=== PATIENT | female | born 1985 | race Caucasian/White ===

== ENCOUNTER 2019-02-20 11:22 | Emergency (ER) | payer SELFPAY ==
[~2019-02-20] VITALS: Ht 165.1 cm; Wt 107.3 kg
[~2019-02-20 11:22] MED LIST: CEPH-443 PO; DICY20TA59 PO; HYDR-3498 PO; IBUP-1542 PO; ONDA4TAB35 PO; PHEN-538 PO
[2019-02-20 11:25] VITALS: Ht 165.1 cm; Wt 107.3 kg
[2019-02-20] MEDS ORDERED: HYDROCODONE/APAP (5/325) TAB PO STA (11:44)
--- NOTE | 2019-02-20 11:50 | ERD ---
ER Documentation Chief Complaint Chief Complaint vaginal bleeding and lower abdominal pain - LMP 11/09/18 HPI 33-year-old G2, P1 female in her 14th week of presents with vaginal bleeding and pelvic pain since yesterday. States that she just found out she was 2 days ago and was diagnosed at the clinic with yesterday. For past two days she has experienced pelvic pane and bleeding. States that she has gone through 2 pads today. States that the pelvic pain is currently 10 out of 10 in intensity and she is requesting medication for pain. Has not taken any treatment so far. Has not had an ultrasound so far. LMP was November 09, 2018. Has a history of prediabetes. Denies any fevers, dysuria, lightheadedness, chest pain, palpitations. ROS All systems reviewed and are negative except as per history of present illness. Medications Home Meds Active Scripts Hydrocodone/Acetaminophen ([place] 5-325 Tablet) 1 Each Tablet, 1 TAB PO Q6H PRN for PAIN, #15 TAB Prov:DASH DAVID 02/20/19 Cephalexin* (Keflex*) 500 Mg Capsule, 500 MG PO BID for 7 Days, #14 CAP Prov:MARISSA FLORES MD 06/23/16 Phenazopyridine Hcl* (Pyridium*) 200 Mg Tab, 200 MG PO TID PRN for URINARY PAIN, #6 TAB Prov:MARISSA FLORES MD 06/23/16 Ibuprofen* (Motrin*) 600 Mg Tab, 600 MG PO Q6H PRN for PAIN AND OR ELEVATED TEMP, #30 TAB Prov:MARISSA FLORES MD 06/23/16 Dicyclomine Hcl* (Bentyl*) 20 Mg Tablet, 20 MG PO QID, #20 TAB Prov:FELIX MANRIQUEZ NP 03/20/16 Ondansetron Hcl* (Zofran* ODT) 4 mg -ODT Tab.disper, 4 MG PO Q8 PRN for NAUSEA AND OR VOMITING, #30 TAB Prov:FELIX MANRIQUEZ NP 03/20/16 Hydrocodone Bit-Acetaminophen* ([place]*) 5-325 Mg Tab, 1 TAB PO Q6 PRN for PAIN, #20 TAB Prov:FELIX MANRIQUEZ MARIAELENA Smith NP 03/20/16 Allergies Allergies: Coded Allergies: No Known Drug Allergies (Verified Allergy, Unknown, 07/21/16) PMhx/Soc History of Surgery: No Anesthesia Reaction: No Hx Neurological Disorder: No Hx Respiratory Disorders: No Hx Cardiac Disorders: No Hx Psychiatric Problems: No Hx Miscellaneous Medical Probl: No Hx Alcohol Use: No Hx Substance Use: No Hx Tobacco Use: No FmHx Family History: No diabetes, No coronary disease, No other Physical Exam Vitals Vital Signs Date Temp Pulse Resp B/P (MAP) Pulse Ox O2 O2 Flow FiO2 Time Delivery Rate 02/20/19 79 20 131/69 100 14:41 (89) 02/20/19 98.7 80 19 137/71 100 11:25 (93) Physical Exam Const: No acute distress Head: Atraumatic Eyes: Normal Conjunctiva ENT: Normal External Ears, Nose and Mouth. Neck: Full range of motion. No meningismus. Resp: Clear to auscultation bilaterally Cardio: Regular rate and rhythm, no murmurs Abd: Tenderness to palpation without guarding in the lower abdomen bilaterally. Negative McBurney's. Skin: No petechiae or rashes Back: No midline or flank tenderness Ext: No cyanosis, or edema Neur: Awake and alert Psych: Normal Mood and Affect Result Diagram: 02/20/19 1155 Results 24 hrs Laboratory Tests Test 02/20/19 11:55 White Blood Count 12.8 10^3/ul Red Blood Count 4.26 10^6/ul Hemoglobin 13.3 g/dl Hematocrit 40.0 % Mean Corpuscular Volume 93.9 fl Mean Corpuscular Hemoglobin 31.2 pg Mean Corpuscular Hemoglobin Concent 33.3 g/dl Red Cell Distribution Width 12.5 % Platelet Count 294 10^3/UL Mean Platelet Volume 10.5 fl Immature Granulocytes % 0.500 % Neutrophils % 59.5 % Lymphocytes % 33.2 % Monocytes % 4.6 % Eosinophils % 2.0 % Basophils % 0.2 % Nucleated Red Blood Cells % 0.0 /100WBC Immature Granulocytes # 0.060 10^3/ul Neutrophils # 7.6 10^3/ul Lymphocytes # 4.3 10^3/ul Monocytes # 0.6 10^3/ul Eosinophils # 0.3 10^3/ul Basophils # 0.0 10^3/ul Nucleated Red Blood Cells # 0.0 10^3/ul Urine Color YELLOW Urine Clarity SLIGHTLY CLOUDY Urine pH 6.0 Urine Specific [place] 1.014 Urine Ketones NEGATIVE mg/dL Urine Nitrite NEGATIVE mg/dL Urine Bilirubin NEGATIVE mg/dL Urine Urobilinogen NEGATIVE mg/dL Urine Leukocyte Esterase NEGATIVE Sruthi/ul Urine Microscopic RBC 18 /HPF Urine Microscopic WBC 6 /HPF Urine Squamous Epithelial Cells FEW /HPF Urine Bacteria FEW /HPF Urine Hemoglobin 3+ mg/dL Urine Glucose NEGATIVE mg/dL Urine Total Protein NEGATIVE mg/dl Beta HCG, Quantitative 1410.8 mIU/ml Current Medications Medications Dose Sig/Jennifer Start Time Status Last (Trade) Ordered Route PRN Stop Time Admin Dose Reason Admin 1 tab ONCE STAT 02/20/19 DC 02/20/19 Acetaminophen PO 11:44 12:18 / 02/20/19 11:55 Hydrocodone Bitart ([place] ()) Procedures/MDM ER Course: CBC, UA, beta quant HCG, type and RH, vaginal US/abdominal US ordered. MDM: There is no intrauterine seen on ultrasound. Differentials include early , missed , or ectopic. Explained this to the patient with business education instructor present and also explained to her that she would need to return in 48 hours for repeat exam in order to rule out ectopic which could be life-threatening. In addition, pelvic exam was performed and there was no hemorrhagic bleeding. OS was closed and there were no products of conception noted at opening of os. Patient is human dynamically stable without exam course. Patient was given 1 [place] in the ER and that successfully resolved her pain. I discharge her with short course of [place] but told to use it sparingly in case there was a viable intrauterine it is not to be on it for too long. Patient understood and agreed to only use it for breakthrough pain. I have low suspicion for septic , pyelonephritis, placenta abrupta, appendicitis, cholecystitis, bowel obstruction, ovarian torsion, symptomatic anemia, PID, surgical abdomen, or other life threatening conditions based on patient history, physical exam, and lab/imaging results. Patient discharged with strict ER precautions. Patient advised to in 48 hours for repeat examination with an business education instructor present . All questions answered at discharge. Departure Diagnosis: Primary Impression: Vaginal bleeding in patient at less than 20 weeks gestation Condition: Stable DASH DAVID February 20, 2019 11:50
[2019-02-20] MEDS ORDERED: HYDR-4011 PO (14:12)
[2019-02-20 14:41] VITALS: BP 131/69; PULSE 79; RESP 20
== END 2019-02-20 14:40 | disposition home or self-care (01) ==
LOC: FTE 11:22
DX: O20.9 Hemorrhage in early pregnancy, unspecified (principal); R10.2 Pelvic and perineal pain; Z3A.14 14 weeks gestation of pregnancy
CPT/HCPCS: 36415; 76801; 76817; 81001; 84702; 85025; 86900; 86901

== ENCOUNTER 2019-02-22 11:12 | Emergency (ER) | payer SELFPAY ==
[~2019-02-22] VITALS: Ht 167.6 cm; Wt 106.6 kg
[~2019-02-22 11:12] MED LIST changes: +HYDR-4011 PO
[2019-02-22 11:38] VITALS: Ht 167.6 cm; Wt 106.6 kg
[2019-02-22] MEDS ORDERED: ACETAMINOPHEN 325 MG TAB PO STA (12:22)
--- NOTE | 2019-02-22 13:14 | ERD ---
ER Documentation Chief Complaint Chief Complaint vaginal bleeding unk time g2 HPI 33-year-old female who is , last menstrual cycle of 11/09/2017 presenting with complaints of vaginal bleeding ongoing for the past 3 days. Patient states she only notices blood when she uses the restroom. She reports associated pelvic pain which is constant, rated 10/10 in severity. She denies any vaginal discharge, fevers, chills, nausea, vomiting, diarrhea, abdominal pain, or other symptoms at this time. Patient was seen here 2 days ago and had an ultrasound which showed no intrauterine , however beta hCG was 1410.8. ROS All systems reviewed and are negative except as per history of present illness. Medications Home Meds Active Scripts Acetaminophen* (Tylenol*) 325 Mg Tablet, 2 TAB PO Q6 PRN for PAIN AND OR ELEVATED TEMP, #20 TAB Prov:DASH MORLEY PA-C 02/22/19 Hydrocodone/Acetaminophen ([place] 5-325 Tablet) 1 Each Tablet, 1 TAB PO Q6H PRN for PAIN, #15 TAB Prov:DASH DAVID 02/20/19 Cephalexin* (Keflex*) 500 Mg Capsule, 500 MG PO BID for 7 Days, #14 CAP Prov:MARISSA FLORES MD 06/23/16 Phenazopyridine Hcl* (Pyridium*) 200 Mg Tab, 200 MG PO TID PRN for URINARY PAIN, #6 TAB Prov:MARISSA FLORES MD 06/23/16 Ibuprofen* (Motrin*) 600 Mg Tab, 600 MG PO Q6H PRN for PAIN AND OR ELEVATED TEMP, #30 TAB Prov:MARISSA FLORES MD 06/23/16 Dicyclomine Hcl* (Bentyl*) 20 Mg Tablet, 20 MG PO QID, #20 TAB Prov:FELIX MANRIQUEZ NP 03/20/16 Ondansetron Hcl* (Zofran* ODT) 4 mg -ODT Tab.disper, 4 MG PO Q8 PRN for NAUSEA AND OR VOMITING, #30 TAB Prov:FELIX MANRIQUEZ NP 03/20/16 Hydrocodone Bit-Acetaminophen* ([place]*) 5-325 Mg Tab, 1 TAB PO Q6 PRN for PAIN, #20 TAB Prov:FELIX MANRIQUEZ DARSHANA 03/20/16 Allergies Allergies: Coded Allergies: No Known Drug Allergies (Verified Allergy, Unknown, 02/22/19) PMhx/Soc Medical and Surgical Hx: pt denies Surgical Hx History of Surgery: Yes (c/s) Anesthesia Reaction: No Hx Neurological Disorder: No Hx Respiratory Disorders: No Hx Cardiac Disorders: No Hx Psychiatric Problems: No Hx Miscellaneous Medical Probl: Yes (pre DM) Hx Alcohol Use: No Hx Substance Use: No Hx Tobacco Use: No Smoking Status: Never smoker FmHx Family History: No diabetes Physical Exam Vitals Vital Signs Date Temp Pulse Resp B/P (MAP) Pulse Ox O2 O2 Flow FiO2 Time Delivery Rate 02/22/19 99.2 75 19 118/65 100 Room Air 16:25 (82) 02/22/19 99.4 69 18 116/57 98 11:38 (76) Physical Exam Const: No acute distress Head: Atraumatic Eyes: Normal Conjunctiva ENT: Normal External Ears, Nose and Mouth. Neck: Full range of motion. No meningismus. Resp: Clear to auscultation bilaterally Cardio: Regular rate and rhythm, no murmurs Abd: Soft, non tender, non distended. Normal bowel sounds. Subjective tenderness palpation of the pelvic region bilaterally. No rebound tenderness or guarding. No McBurney's point tenderness. Skin: No petechiae or rashes Back: No midline or flank tenderness Ext: No cyanosis, or edema Neur: Awake and alert Psych: Normal Mood and Affect Result Diagram: 02/22/19 1235 Results 24 hrs Laboratory Tests Test 02/22/19 12:35 White Blood Count 12.9 10^3/ul Red Blood Count 4.29 10^6/ul Hemoglobin 13.4 g/dl Hematocrit 40.5 % Mean Corpuscular Volume 94.4 fl Mean Corpuscular Hemoglobin 31.2 pg Mean Corpuscular Hemoglobin Concent 33.1 g/dl Red Cell Distribution Width 12.3 % Platelet Count 320 10^3/UL Mean Platelet Volume 10.9 fl Immature Granulocytes % 0.400 % Neutrophils % 61.6 % Lymphocytes % 30.7 % Monocytes % 4.7 % Eosinophils % 2.2 % Basophils % 0.4 % Nucleated Red Blood Cells % 0.0 /100WBC Immature Granulocytes # 0.050 10^3/ul Neutrophils # 7.9 10^3/ul Lymphocytes # 4.0 10^3/ul Monocytes # 0.6 10^3/ul Eosinophils # 0.3 10^3/ul Basophils # 0.1 10^3/ul Nucleated Red Blood Cells # 0.0 10^3/ul Urine Color STRAW Urine Clarity CLEAR Urine pH 7.0 Urine Specific [place] 1.006 Urine Ketones NEGATIVE mg/dL Urine Nitrite NEGATIVE mg/dL Urine Bilirubin NEGATIVE mg/dL Urine Urobilinogen NEGATIVE mg/dL Urine Leukocyte Esterase NEGATIVE Sruthi/ul Urine Microscopic RBC 0 /HPF Urine Microscopic WBC 0 /HPF Urine Hemoglobin 2+ mg/dL Urine Glucose NEGATIVE mg/dL Urine Total Protein NEGATIVE mg/dl Beta HCG, Quantitative 1444.7 mIU/ml Current Medications Medications Dose Sig/Jennifer Start Time Status Last (Trade) Ordered Route PRN Stop Time Admin Dose Reason Admin 650 mg ONCE STAT 02/22/19 DC 02/22/19 Acetaminophen PO 12:22 12:40 (Tylenol 02/22/19 12:23 Tab) [place] [id number] Radiology Main Line: [phone] DIAGNOSTIC IMAGING REPORT Patient: MARCELLE ESCOTO : 1985 Age: 33 Sex: F MR #: [id number] DOS: 02/22/19 1222 Ordering MD: DASH MORLEY PA-C Location: [facility] Room/Bed: PROCEDURE: US First Trimester, Transabdominal CLINICAL INDICATION: Vaginal bleeding. Positive test. TECHNIQUE: Real-time transabdominal obstetrical ultrasound of the maternal pelvis and a first trimester with image documentation. COMPARISON: 02/20/2019. FINDINGS: GESTATION: No intrauterine gestation demonstrated. PLACENTA/AMNIOTIC FLUID: Cannot be adequately evaluated due to the early gestational age. UTERUS/CERVIX: Uterus measures 11.5 x 4.3 x 7.6 cm. The endometrium measures 3.6 mm in thickness. No myometrial mass. OVARIES: Right ovary measures 3.1 x 2.0 x 2.9 cm. The ovary is unremarkable in appearance. Follicular type cysts are demonstrated. Blood flow is documented by Doppler. Left ovary measures 3.1 x 129 x 2.4 cm. The ovary is unremarkable in appearance. Follicular type cysts are demonstrated. Blood flow is documented by Doppler. No mass. FREE FLUID: No free fluid in the cul-de-sac. IMPRESSION: 1. No intrauterine gestation demonstrated. No abnormal adnexal mass. 2. Given the history of positive test, findings are consistent with of unknown location. Differential diagnostic considerations include early intrauterine gestation, below the resolution of ultrasound versus recent spontaneous versus early ectopic , below the resolution of ultrasound. Follow-up serial beta hCG levels and follow-up ultrasound suggested, as clinically indicated. 3. There is no significant interval change from the previous study. RPTAT: [facility] Gi Alegre Physician Avionics Systems Technician Date Time Electronically viewed and signed by Gi Alegre Physician Avionics Systems Technician on 02/22/2019 14:04 RmC/ CC: DASH MORLEY PA-C [id number] Procedures/MDM 33-year-old female presenting to the emergency department complaining of vaginal bleeding during . She did have some tenderness palpation of the pelvic region on examination. Beta hCG today was one 444.7, which is trending upwards from 1410.82 days ago. Obstetrics ultrasound today revealed no intrauterine gestation visualized]. Full report interpreted by the radiologist may be viewed above. Patient is administered Tylenol in the department with good response. CBC showed no evidence of significant leukocytosis or anemia. Patient stable and appropriate for discharge and further outpatient follow-up with SWIMMING POOL MAINTENANCE SUPERVISOR physician within the next 24 to 48 hours. She was in agreement with the diagnosis, plan, need for follow-up, return precautions. All questions answered at discharge. I did discuss this patient's case with attending SWIMMING POOL MAINTENANCE SUPERVISOR physician, Dr. Parikh who recommended 24 to 48-hour follow-up with repeat beta-hCG and ultrasound. Patient understood instructions and her questions and concerns were addressed prior to discharge. There is no evidence of ectopic , tubo-ovarian abscess, ovarian torsion, placenta abruptio, or other emergencies. No evidence of life-threatening pathology at time of discharge. Pt/family in agreement with discharge plan/diagnosis. Pt/family advised to return immediately with any new or worsening symptoms. Follow-up with primary care physician within the next 1-2 days. Departure Diagnosis: Primary Impression: Vaginal bleeding in patient at less than 20 weeks gestation Condition: Fair Patient Instructions: Bleeding During Early DASH MORLEY PA-C February 22, 2019 13:14
[2019-02-22] MEDS ORDERED: ACET325T33 PO (16:12)
[2019-02-22 16:25] VITALS: BP 118/65; PULSE 75; RESP 19
== END 2019-02-22 16:26 | disposition home or self-care (01) ==
LOC: FTE 11:12
DX: O20.9 Hemorrhage in early pregnancy, unspecified (principal); R10.2 Pelvic and perineal pain; Z3A.00 Weeks of gestation of pregnancy not specified
CPT/HCPCS: 36415; 76801; 81001; 84702; 85025

== ENCOUNTER 2019-03-05 15:05 | Emergency (ER) | payer MEDICAID ==
[~2019-03-05] VITALS: Wt 90.0 kg
[~2019-03-05 15:05] MED LIST changes: +ACET325T33 PO
[2019-03-05 15:12] VITALS: BP 134/69; PULSE 76; RESP 18
[2019-03-05] MEDS ORDERED: ACETAMINOPHEN 325 MG TAB PO STA (15:23)
--- NOTE | 2019-03-05 16:16 | ERD ---
ER Documentation Chief Complaint Chief Complaint WITH AP, AND HIGH BS HPI 33-year-old female who is G2, P1, last menstrual cycle of November 09, 2018 presenting to the emergency department complaints of intermittent pelvic pain for the past 3 weeks but worsening over the past several days. She also reports mild spotting which comes and goes. She reports pain which is rated 8/10 in severity. She was here on February 22, 2019 and had pelvic ultrasound and beta-hCG at that time. Beta-hCG at that time was 1444. Ultrasound showed no evidence of intrauterine . Patient is returning today for repeat testing. ROS All systems reviewed and are negative except as per history of present illness. Medications Home Meds Active Scripts Acetaminophen* (Tylenol*) 325 Mg Tablet, 2 TAB PO Q6 PRN for PAIN AND OR ELEVATED TEMP, #20 TAB Prov:DASH MORLEY PA-C 02/22/19 Hydrocodone/Acetaminophen ([place] 5-325 Tablet) 1 Each Tablet, 1 TAB PO Q6H PRN for PAIN, #15 TAB Prov:DASH DAVID 02/20/19 Cephalexin* (Keflex*) 500 Mg Capsule, 500 MG PO BID for 7 Days, #14 CAP Prov:MARISSA FLORES MD 06/23/16 Phenazopyridine Hcl* (Pyridium*) 200 Mg Tab, 200 MG PO TID PRN for URINARY PAIN, #6 TAB Prov:MARISSA FLORES MD 06/23/16 Ibuprofen* (Motrin*) 600 Mg Tab, 600 MG PO Q6H PRN for PAIN AND OR ELEVATED TEMP, #30 TAB Prov:MARISSA FLORES MD 06/23/16 Dicyclomine Hcl* (Bentyl*) 20 Mg Tablet, 20 MG PO QID, #20 TAB Prov:FELIX MANRIQUEZ NP 03/20/16 Ondansetron Hcl* (Zofran* ODT) 4 mg -ODT Tab.disper, 4 MG PO Q8 PRN for NAUSEA AND OR VOMITING, #30 TAB Prov:FELIX MANRIQUEZ NP 03/20/16 Hydrocodone Bit-Acetaminophen* ([place]*) 5-325 Mg Tab, 1 TAB PO Q6 PRN for PAIN, #20 TAB Prov:DECLAN,FELIXSelena Smith NP 03/20/16 Allergies Allergies: Coded Allergies: No Known Drug Allergies (Verified Allergy, Unknown, 03/05/19) PMhx/Soc History of Surgery: Yes (c/s) Anesthesia Reaction: No Hx Neurological Disorder: No Hx Respiratory Disorders: No Hx Cardiac Disorders: No Hx Psychiatric Problems: No Hx Miscellaneous Medical Probl: Yes (pre DM) Hx Alcohol Use: No Hx Substance Use: No Hx Tobacco Use: No Smoking Status: Never smoker FmHx Family History: No diabetes Physical Exam Vitals Vital Signs Date Temp Pulse Resp B/P (MAP) Pulse Ox O2 O2 Flow FiO2 Time Delivery Rate 03/05/19 98.6 76 18 134/69 99 15:12 (90) Physical Exam Const: No acute distress Head: Atraumatic Eyes: Normal Conjunctiva ENT: Normal External Ears, Nose and Mouth. Neck: Full range of motion. No meningismus. Resp: Clear to auscultation bilaterally Cardio: Regular rate and rhythm, no murmurs Abd: Soft, non tender, non distended. Normal bowel sounds. No rebound tenderness or guarding. No McBurney's point tenderness. Mild tenderness palpation of the pelvic region, worse on the left. Skin: No petechiae or rashes Back: No midline or flank tenderness Ext: No cyanosis, or edema Neur: Awake and alert Psych: Normal Mood and Affect Result Diagram: 03/05/19 1539 Results 24 hrs Laboratory Tests Test 03/05/19 15:39 White Blood Count 11.3 10^3/ul Red Blood Count 4.11 10^6/ul Hemoglobin 12.7 g/dl Hematocrit 38.5 % Mean Corpuscular Volume 93.7 fl Mean Corpuscular Hemoglobin 30.9 pg Mean Corpuscular Hemoglobin Concent 33.0 g/dl Red Cell Distribution Width 12.0 % Platelet Count 283 10^3/UL Mean Platelet Volume 10.8 fl Immature Granulocytes % 0.400 % Neutrophils % 55.8 % Lymphocytes % 35.6 % Monocytes % 4.9 % Eosinophils % 2.9 % Basophils % 0.4 % Nucleated Red Blood Cells % 0.0 /100WBC Immature Granulocytes # 0.040 10^3/ul Neutrophils # 6.3 10^3/ul Lymphocytes # 4.0 10^3/ul Monocytes # 0.6 10^3/ul Eosinophils # 0.3 10^3/ul Basophils # 0.0 10^3/ul Nucleated Red Blood Cells # 0.0 10^3/ul Urine Color YELLOW Urine Clarity CLOUDY Urine pH 7.0 Urine Specific [place] 1.015 Urine Ketones NEGATIVE mg/dL Urine Nitrite NEGATIVE mg/dL Urine Bilirubin NEGATIVE mg/dL Urine Urobilinogen NEGATIVE mg/dL Urine Leukocyte Esterase NEGATIVE Sruthi/ul Urine Microscopic RBC 2 /HPF Urine Microscopic WBC 0 /HPF Urine Squamous Epithelial Cells FEW /HPF Urine Amorphous Crystals MODERATE /HPF Urine Bacteria FEW /HPF Urine Hemoglobin NEGATIVE mg/dL Urine Glucose 1+ mg/dL Urine Total Protein NEGATIVE mg/dl Beta HCG, Quantitative 215.4 mIU/ml Current Medications Medications Dose Sig/Jennifer Start Time Status Last (Trade) Ordered Route PRN Stop Time Admin Dose Reason Admin 650 mg ONCE STAT 03/05/19 DC 03/05/19 Acetaminophen PO 15:23 15:35 (Tylenol 03/05/19 15:24 Tab) [place] [id number] Radiology Main Line: [phone] DIAGNOSTIC IMAGING REPORT Patient: MARCELLE ESCOTO : 1985 Age: 33 Sex: F MR #: [id number] DOS: 03/05/19 1523 Ordering MD: DASH MORLEY PA-C Location: [facility] Room/Bed: PROCEDURE: US OB. CLINICAL INDICATION: Vaginal bleeding. TECHNIQUE: Transabdominal sonographic evaluation of the uterus was performed. COMPARISON: Obstetrical sonogram dated 02/22/2019 and 02/20/2019. FINDINGS: Uterus is anteverted and measures 12.7 x 4.8 x 6 cm. Endometrium measures 4 mm in thickness. No intrauterine gestational sac is seen. Right ovary was not seen on this examination. Left ovary measures 3.8 x 2.2 x 3.5 cm. No suspicious adnexal masses are visualized. There is no free pelvic fluid. IMPRESSION: 1. No visible intrauterine or ectopic . of unknown location. Correlation with serial Beta HCG measurements is recommended. In the setting of positive beta HCG level, ectopic cannot be excluded. RPTAT:AAEE Physician Kirsty Date Time Electronically viewed and signed by Sagar Nair Physician on 03/05/2019 16:20 RM/ CC: DASH MORLEY PA-C [id number] Procedures/MDM 33-year-old female presented to the emergency department complaints of pelvic pain and vaginal bleeding. Last quantitative hCG approximately 11 days ago was 1444. Patient is Rh 215. Urinalysis showed [no leukocytes, nitrites or glucose]. Pelvic ultrasound shows no intrauterine gestation. Differential includes early , missed or ectopic . No adnexal masses appreciated. History, physical examination, work-up most consistent with active . Very low suspicion for ectopic at this time as beta hCG has been significantly downtrending and ultrasound shows no evidence of adnexal masses. No evidence of retained products. Patient will be discharged home with instructions on the importance of a 2 day follow-up. Signs and symptoms do not suggest endometritis or septic . Patient return sooner for fevers, vomiting, shortness of breath or chest pain. Signs and symptoms do not suggest appendicitis, acute abdomen but patient should recheck as directed. Departure Diagnosis: Primary Impression: Vaginal bleeding in patient at less than 20 weeks gestation Condition: Fair Patient Instructions: Bleeding During Early DASH MORLEY PA-C March 05, 2019 16:16
== END 2019-03-05 19:02 | disposition home or self-care (01) ==
LOC: FTE 15:05
DX: O20.9 Hemorrhage in early pregnancy, unspecified (principal); R10.2 Pelvic and perineal pain; Z3A.00 Weeks of gestation of pregnancy not specified
CPT/HCPCS: 76801; 81001; 84702; 85025; 86900; 86901; Z7502; Z7610